=== PATIENT | male | born 1975 | race Caucasian/White ===

== ENCOUNTER 2024-11-24 20:17 | Emergency (ER) | payer SELFPAY ==
[~2024-11-24] VITALS: Ht 172.7 cm; Wt 70.0 kg
[2024-11-24 20:19] VITALS: O2SAT 96
[2024-11-24] MEDS ORDERED: ALBU18HF2 IH (23:17)
[2024-11-24] MEDS ORDERED: IBUP-2029 MT (23:17)
[2024-11-24] MEDS ORDERED: LEVO750T68 MT (23:17)
[2024-11-24 23:40] VITALS: BP 127/83; PULSE 98; RESP 18; TEMP 36.6; O2SAT 96
== END 2024-11-24 23:49 | disposition home or self-care (01) ==
LOC: ER 20:17
DX: J18.9 Pneumonia, unspecified organism (principal); J45.909 Unspecified asthma, uncomplicated; Z79.899 Other long term (current) drug therapy
CPT/HCPCS: 71045; 99283